=== PATIENT | female | born 1970 | race Caucasian/White ===

== ENCOUNTER 2024-09-29 09:44 | Emergency (ER) | payer OTHER ==
[2024-09-29] MEDS ORDERED: ONDANSETRON 4 MG/2 ML VIAL ONE (10:19)
[2024-09-29] MEDS ORDERED: MORPHINE 4 MG/ML SYR ONE (10:20)
[2024-09-29] MEDS ORDERED: PANTOPRAZOLE 40 MG INJ ONE (10:20)
[2024-09-29] MEDS ORDERED: NA CHLORIDE 0.9% 250 ML ONE (10:20)
[2024-09-29 10:43] LABS: Absolute Eosinophils 0.1 K/uL (0-0.5); Absolute Monocytes 0.5 K/uL (0.1-1.3); Absolute Neutrophil 2.7 K/uL (1.8-8.0); Basophils % 0.7 % (0-1.3); Eosinophils % 1.2 % (0-4.4); Hematocrit 36.6 % (36.0-45.0); Hemoglobin 12.2 g/dL (12.0-15.0); Lymphocytes % 47.1 % (15.3-44.8); MCH 31.1 pg (27.0-35.0); MCHC 33.4 g/dL (32.0-36.0); MCV 93.1 fL (80-100); Nucleated Red Blood Cells % 0.1 % (0-0); Platelets 322 thou/uL (152-406); RBC Red Blood Cell Count 3.93 M/uL (3.86-4.86)
[2024-09-29 11:09] LABS: Albumin 3.6 g/dL (3.4-5.0); Albumin/Globulin Ratio 1.2 (1.1-1.8); Anion Gap 8.4 mEq/L (5.0-15.0); Bilirubin Total 0.6 mg/dL (0.2-1.0); Globulin 3.1 g/dL (2.3-3.5); Potassium 4.4 mEq/L (3.5-5.1); Protein, Total 6.7 g/dL (6.4-8.2)
[2024-09-29] MEDS ORDERED: CEFTRIAXONE 1000 MG/VIAL ONE (12:14)
[2024-09-29] MEDS ORDERED: NA CHLORIDE 0.9% 50 ML ONE (12:15)
[2024-09-29] MEDS ORDERED: DICYCLOMINE HCL 20 MG/2 ML AMP IM ONE (12:15)
[2024-09-29] MEDS ORDERED: droPERidol 5 MG/2 ML VIAL ONE (13:22)
--- NOTE | 2024-09-29 13:45 | EDPHYS ---
Physician Documentation [facility] Name: Jeanine Patel Age: 54 yrs Sex: Female : 1970 Arrival Date: 09/29/2024 Time: 09:44 Bed 20 Private MD: ED Physician Jacob Baldwin HPI: 09/29 10:30 This 54 yrs old Female presents to ER via Wheelchair with complaints of rn Nausea/Vomiting, Abdominal Pain. 10:30 The patient presents to the emergency department with nausea, vomiting, abdominal pain, rn of the right lower quadrant and left lower quadrant. Onset: The symptoms/episode began/occurred 3 day(s) ago. Possible causes: unknown. The symptoms are aggravated by nothing. The symptoms are alleviated by nothing. Severity of symptoms: At their worst the symptoms were moderate in the emergency department the symptoms are unchanged. The patient has not experienced similar symptoms in the past. The patient has been recently seen by a physician:. Patient reports was having epigastric discomfort associated with nausea and vomiting for the last few days, now pain has migrated to the lower abdomen and is having dark black stool with foul smell. No diarrhea. Does not take blood thinners. No known history of ulcers. Has had a colonoscopy before but states was nondiagnostic. Called her GI doctor office and was instructed to come to the emergency room today for evaluation. Had a CT scan ordered by her GI doctor and was obtained yesterday afternoon at this facility.. 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 - Infectious Disease History:: Denies. - Social history:: Smoking status: Patient denies any tobacco usage or history of. - Family history:: not pertinent. - Hospitalizations: : No recent hospitalization is reported. ROS: 10:30 Constitutional: Negative for fever, chills, and weight loss, Cardiovascular: Negative rn for chest pain, palpitations, and edema, Respiratory: Negative for shortness of breath, cough, wheezing, and pleuritic chest pain, Abdomen/GI: Negative for diarrhea : Negative for injury, bleeding, discharge, and swelling, MS/Extremity: Negative for injury and deformity, Skin: Negative for injury, rash, and discoloration, Neuro: Negative for headache, weakness, numbness, tingling, and seizure, Exam: 10:30 Constitutional: This is a well developed, well nourished patient who is awake, alert, rn appears uncomfortable Cardiovascular: Regular rate and rhythm. No pulse deficits. Respiratory: No increased work of breathing, no retractions or nasal flaring. Abdomen/GI: Soft, mild epigastric and bilateral lower abdominal tenderness. No rebound or guarding. No distention Vital Signs: 10:17 BP 113 / 72; Pulse 78; Resp 17; Temp 97.1; Pulse Ox 100% ; Weight 63.5 kg; Height 5 ft. jl7 10 in. ; Pain 10/10; 11:00 BP 108 / 74; Pulse 73; Resp 18; Pulse Ox 99% on R/A; db 12:30 BP 111 / 75; Pulse 79; Resp 18; Pulse Ox 99% on R/A; db 13:30 BP 107 / 80; Pulse 74; Resp 18; Pulse Ox 99% on R/A; db 10:17 Body Mass Index 20.09 (63.50 kg, 177.8 cm) jl7 10:17 Pain Scale: Adult jl7 MDM: 09:51 Medical Screening Exam initiated rn 10:39 ED course: CT abdomen pelvis obtained yesterday reviewed and was read negative for rn resource nurse findings.. 13:42 Differential diagnosis: Nonspecific abd pain, gastritis, cholecystitis, pancreatitis, rn appendicitis, diverticulitis, viral gastroenteritis, gastroenteritis. Data reviewed: vital signs, nurses notes, lab test result(s), radiologic studies, CT scan, and as a result, I will discharge patient. Consideration of Admission/Observation Escalation of care including admission/observation considered. Admission considered but we do not have GI on-call, and no indication for emergent transfer at this time. Patient has normal CT abdomen as well as normal CBC and LFTs.. Counseling: I had a detailed discussion with the patient and/or guardian regarding the historical points, exam findings, and any diagnostic results supporting the discharge/admit diagnosis, lab results, radiology results, the need for outpatient follow up, to return to the emergency department if symptoms worsen or persist or if there are any questions or concerns that arise at home. Response to treatment: the patient's symptoms have markedly improved after treatment, and as a result, I will discharge patient. Special discussion: Based on the patient's Hx, exam, and Dx evaluation, there is no indication for emergent surgery or inpatient Tx. It is understood by the patient/guardian that if the Sx's persist or worsen they need to return immediately for re-evaluation. I discussed with the patient/guardian in detail that at this point there is no indication for admission to the hospital. It is understood, however, that if the symptoms persist or worsen the patient needs to return immediately for re-evaluation. Based on the history and exam findings, there is no indication for further emergent testing or inpatient evaluation. I discussed with the patient/guardian the need to see the booky for further evaluation of the symptoms. ED course: No acute findings and workup. Has not had bloody bowel movement or melena here. Stable vital signs. Feels better after medication. Recommend antacids, as needed nausea medicine and considering antibiotics for possible early infection as well as GI follow-up. Patient agreeable with plan and states if anything worsens will come back or seek GI doctor evaluation.. 09/29 10:07 Order name: CBC with Diff; Complete Time: 11:15 rn 09/29 10:07 Order name: CMP; Complete Time: 11:15 rn 09/29 10:07 Order name: Lipase; Complete Time: 11:15 rn 09/29 10:07 Order name: IV Saline Lock; Complete Time: 10:38 rn 09/29 10:07 Order name: Labs collected and sent; Complete Time: 10:38 rn Administered Medications: 10:35 Drug: Ondansetron IVP 4 mg IVP once; over 2 minutes Route: IVP; Site: right antecubital;db 12:22 Follow up: Response: No adverse reaction db 10:35 Drug: morphine IVP or IV 4 mg IVP once over 4 mins Route: IVP; Infused Over: 4 mins; db Site: right antecubital; 12:22 Follow up: Response: No adverse reaction db 10:35 Drug: Pantoprazole IVP 40 mg IVP once Route: IVP; Site: right antecubital; db 12:22 Follow up: Response: No adverse reaction db 10:35 Drug: Pantoprazole IV 8 mg/hr IV at 25 ml/hr continuous; (Standard dilution is 80 mg in db 250 mL NS) Route: IV; Rate: 25 ml/hr; Site: right antecubital; 14:03 Follow up: Response: No adverse reaction; IV Status: Completed infusion db 12:15 Drug: Rocephin IV 1 grams IV at calculated rate once; Given slow IV push per pharmacy db instructions Route: IV; Rate: calculated rate; Site: right antecubital; 14:03 Follow up: Response: No adverse reaction; IV Status: Completed infusion; IV Intake: 50mldb 12:15 Drug: Dicyclomine IM 20 mg IM once Route: IM; Site: right ventrogluteal; db 14:04 Follow up: Response: No adverse reaction db 13:25 Drug: Droperidol IVP 1.25 mg IVP once Route: IVP; Site: right antecubital; db 14:04 Follow up: Response: No adverse reaction db Disposition Summary: 09/29/24 13:44 Discharge Ordered Notes: Location: Home rn Problem: new rn Symptoms: have improved rn Condition: Stable rn Diagnosis - Abdominal pain, unspecified rn Followup: rn - With: Tim Odonnell MD - When: As needed - Reason: Recheck today's complaints, Re-evaluation by your physician Discharge Instructions: - Discharge Summary Sheet rn - Abdominal Pain, Adult rn Forms: - Medication Reconciliation Form rn - Antibiotic international logistics analyst - Prescription Opioid Use rn - Patient Portal Instructions rn - Leadership Thank You Letter rn Prescriptions: - Flagyl 500 mg Oral Tablet - take 1 tablet ORAL route every 12 hours for 7 days; 14 tablet; Refills: 0, rn Product Selection Permitted - Protonix 40 mg Oral Tablet - take 1 tablet ORAL route once daily; 30 tablet; Refills: 0, Product Selection rn Permitted - Cipro 500 mg Oral Tablet - take 1 tablet ORAL route every 12 hours for 7 days; 14 tablet; Refills: 0, rn Product Selection Permitted - Tramadol 50 mg Oral Tablet - take 1 tablet ORAL route every 8 hours as needed; 12 tablet; Refills: 0, rn Product Selection Permitted Signatures: Dispatcher [employer] Jacob Alegre MD MD rn Leal, Jahala, RN RN jlRadha Ji, RN RN db
--- NOTE | 2024-09-29 13:45 | ER ---
Nurse's Notes [facility] Name: Jeanine Patel Age: 54 yrs Sex: Female : 1970 Arrival Date: 09/29/2024 Time: 09:44 Bed 20 Private MD: Diagnosis: Abdominal pain, unspecified Presentation: 09/29 10:17 Chief complaint: Patient states: Lower abd pain since 1700 yesterday. Coronavirus jl7 screen: At this time, the client does not indicate any symptoms associated with coronavirus-19. Ebola Screen: No symptoms or risks identified at this time. Initial Sepsis Screen: Does the patient meet any 2 criteria? No. Patient's initial sepsis screen is negative. Does the patient have a suspected source of infection? No. Patient's initial sepsis screen is negative. Risk Assessment: Do you want to hurt yourself or someone else? Patient reports no desire to harm self or others. Onset of symptoms was September 28, 2024 at 17:00. 10:17 Method Of Arrival: Wheelchair jl7 10:17 Acuity: EVELYN 3 jl7 Triage Assessment: 10:19 General: Appears in no apparent distress. uncomfortable, well groomed, well developed, jl7 well nourished, Behavior is cooperative, crying. Pain: Complains of pain in abdomen Pain currently is 10 out of 10 on a pain scale. GI: Reports lower abdominal pain, nausea. 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 - Infectious Disease History:: Denies. - Social history:: Smoking status: Patient denies any tobacco usage or history of. - Family history:: not pertinent. - Hospitalizations: : No recent hospitalization is reported. Screenin:[address] [facility] ED Fall Risk Assessment (Adult) History of falling in the last 3 months, db including since admission No falls in past 3 months (0 pts) Confusion or Disorientation No (0 pts) Intoxicated or Sedated No (0 pts) Impaired Gait No (0 pts) Mobility Assist Device Used No (0 pt) Altered Elimination No (0 pt) Score/Fall Risk Level 0 - 2 = Low Risk Oriented to surroundings, Maintained a safe environment. Abuse screen: Denies threats or abuse. Denies injuries from another. Nutritional screening: No deficits noted. Tuberculosis screening: No symptoms or risk factors identified. Assessment: 10:39 Reassessment: Patient appears in no apparent distress at this time. Patient and/or db family updated on plan of care and expected duration. Pain level reassessed. Patient is alert, oriented x 3, equal unlabored respirations, skin warm/dry/pink. General: Appears in no apparent distress. uncomfortable, Behavior is cooperative. Neuro: Level of Consciousness is awake, alert, obeys commands, Oriented to person, place, time, situation. GI: Abdomen is non-distended, Reports nausea. 12:30 Reassessment: Patient appears in no apparent distress at this time. Patient and/or db family updated on plan of care and expected duration. Pain level reassessed. Patient is alert, oriented x 3, equal unlabored respirations, skin warm/dry/pink. 13:30 Reassessment: Patient appears in no apparent distress at this time. Patient and/or db family updated on plan of care and expected duration. Pain level reassessed. Patient is alert, oriented x 3, equal unlabored respirations, skin warm/dry/pink. Vital Signs: 10:17 BP 113 / 72; Pulse 78; Resp 17; Temp 97.1; Pulse Ox 100% ; Weight 63.5 kg; Height 5 ft. jl7 10 in. ; Pain 10/10; 11:00 BP 108 / 74; Pulse 73; Resp 18; Pulse Ox 99% on R/A; db 12:30 BP 111 / 75; Pulse 79; Resp 18; Pulse Ox 99% on R/A; db 13:30 BP 107 / 80; Pulse 74; Resp 18; Pulse Ox 99% on R/A; db 10:17 Body Mass Index 20.09 (63.50 kg, 177.8 cm) jl7 10:17 Pain Scale: Adult jl7 ED Course: 09:48 Patient arrived in ED. al6 09:51 Jacob Baldwin MD is Attending Physician. rn 10:19 Triage completed. jl7 10:19 Arm band placed on right wrist. jl7 10:24 Radha Olivier, RN is Primary Nurse. db 10:35 Inserted saline lock: 22 gauge in right antecubital area, using aseptic technique. nh2 Blood collected. Flushed with 10 mL NS. 10:38 CBC with Diff Sent. nh2 10:38 CMP Sent. nh2 10:38 Lipase Sent. nh2 10:40 Patient has correct armband on for positive identification. Placed in gown. Bed in low db position. Call light in reach. Side rails up X2. Pulse ox on. NIBP on. Warm blanket given. Pillow given. 13:44 Tim Odonnell MD is Referral Physician. rn 14:01 Provided Education on: DISCHARGE AND FOLLOWUP. db 14:01 No provider procedures requiring assistance completed. IV discontinued, intact, db bleeding controlled, No redness/swelling at site. Administered Medications: 10:35 Drug: Ondansetron IVP 4 mg IVP once; over 2 minutes Route: IVP; Site: right antecubital;db 12:22 Follow up: Response: No adverse reaction db 10:35 Drug: morphine IVP or IV 4 mg IVP once over 4 mins Route: IVP; Infused Over: 4 mins; db Site: right antecubital; 12:22 Follow up: Response: No adverse reaction db 10:35 Drug: Pantoprazole IVP 40 mg IVP once Route: IVP; Site: right antecubital; db 12:22 Follow up: Response: No adverse reaction db 10:35 Drug: Pantoprazole IV 8 mg/hr IV at 25 ml/hr continuous; (Standard dilution is 80 mg in db 250 mL NS) Route: IV; Rate: 25 ml/hr; Site: right antecubital; 14:03 Follow up: Response: No adverse reaction; IV Status: Completed infusion db 12:15 Drug: Rocephin IV 1 grams IV at calculated rate once; Given slow IV push per pharmacy db instructions Route: IV; Rate: calculated rate; Site: right antecubital; 14:03 Follow up: Response: No adverse reaction; IV Status: Completed infusion; IV Intake: 50mldb 12:15 Drug: Dicyclomine IM 20 mg IM once Route: IM; Site: right ventrogluteal; db 14:04 Follow up: Response: No adverse reaction db 13:25 Drug: Droperidol IVP 1.25 mg IVP once Route: IVP; Site: right antecubital; db 14:04 Follow up: Response: No adverse reaction db Medication: 14:01 VIS not applicable for this client. db Intake: 14:03 IV: 50ml; Total: 50ml. db Outcome: 13:44 Discharge ordered by . rn 14:01 Discharged to home ambulatory, with friend, db 14:01 Condition: stable 14:01 Discharge instructions given to patient, Instructed on discharge instructions, follow up and referral plans. Prescriptions given X 4, 14:05 Patient left the ED. db Signatures: Jacob Baldwin MD MD rn Leal, Jahala RN RN jl7 Radha Olivier RN RN chacorta Beckford Jr, Mirian Servin6 Corrections: (The following items were deleted from the chart) 14:02 13:00 BP 107 / 80; Pulse 74bpm; Resp 18bpm; Pulse Ox 99% RA; db db
[2024-09-29 21:48] VITALS: TEMP 97.1
[2024-09-29 21:49] VITALS: O2SAT 99
[2024-09-29 21:51] VITALS: BP 107/80
== END 2024-09-29 14:05 | disposition home or self-care (01) ==
LOC: ER 09:44
DX: R10.30 Lower abdominal pain, unspecified (principal)
CPT/HCPCS: 96365; 85025; 36415; 83690; 80053; 96375; 96372; 99284; 96366; J0500; J2470; J2405; J1790; J7050; J0696